=== PATIENT | male | born 1950 | race Caucasian/White ===

== ENCOUNTER → 2016-09-29 | Outpatient (CLI) | payer OTHER | LOC: BMCIMAGING 10:28 | PROVIDERS: ATTEND Family Medicine | DX: J44.9 Chronic obstructive pulmonary disease, unspecified (principal) ==

== ENCOUNTER → 2016-10-01 | Outpatient (CLI) | payer OTHER | LOC: BMCIMAGING 13:05 | PROVIDERS: ATTEND Internal Medicine | DX: R91.8 Other nonspecific abnormal finding of lung field (principal) ==

== ENCOUNTER → 2016-11-27 | Outpatient (CLI) | payer OTHER | LOC: BMCIMAGING 08:08 | PROVIDERS: ATTEND Internal Medicine | DX: Z13.83 Encounter for screening for respiratory disorder NEC (principal) ==

== ENCOUNTER → 2017-05-06 | Outpatient (CLI) | payer OTHER | LOC: BMCIMAGING 08:41 | PROVIDERS: ATTEND Family Medicine | DX: S52.122A Displaced fracture of head of left radius, initial encounter for closed fracture (principal) ==

== ENCOUNTER 2017-12-08 12:17 | Emergency (ER) | payer OTHER ==
--- NOTE | 2017-12-08 13:10 | EDPHY ---
H & P Stated Complaint: Tripped/fell; pain R wrist and LFA Time Seen by Provider: 12/08/17 12:42 HPI/ROS: CHIEF COMPLAINT: Mechanical fall, right wrist pain, left elbow pain HISTORY OF PRESENT ILLNESS: The patient presents to the ED with complaints of right wrist pain and left elbow pain after mechanical fall. The patient has a history of a right wrist fusion. The patient did not strike his head or lose consciousness. He has pain with movement in both the joints. He denies any associated numbness or weakness. He denies additional acute complaints. REVIEW OF SYSTEMS: A comprehensive 10 point review of systems is otherwise negative aside from elements mentioned in the history of present illness. Source: Patient Exam Limitations: No limitations - Personal History Current Tetanus Diphtheria and Acellular Pertussis (TDAP): Yes - Medical/Surgical History Hx Asthma: No Hx Chronic Respiratory Disease: No Hx Diabetes: No Hx Cardiac Disease: No Hx Renal Disease: No Hx Cirrhosis: No Hx Alcoholism: No Hx HIV/AIDS: No Hx Splenectomy or Spleen Trauma: No Other PMH: DENIES PMH. PSH:ORTHO; partial fusion with implant R wrist - Social History Smoking Status: Never smoked - Physical Exam Exam: General Appearance: Alert, no distress Head: Atraumatic Eyes: Pupils equal, round, reactive ENT, Mouth: No hemotympanum, no oral trauma Neck: Nontender, trachea midline Respiratory: Chest wall stable, no crepitus Cardiovascular: Regular rate and rhythm Abdomen: Abdomen is soft and nontender, pelvis stable Skin: No lacerations, No abrasion Back: No midline T/L/S pain Extremities: Tenderness to palpation right distal radius, tenderness to palpation left radial head Neurological: A&Ox3, normal motor function, normal sensory exam Constitutional: Initial Vital Signs Temperature (C) 36.7 C 12/08/17 12:25 Heart Rate 68 12/08/17 12:25 Respiratory Rate 16 12/08/17 12:25 Blood Pressure 150/100 H 12/08/17 12:25 O2 Sat (%) 97 12/08/17 12:25 O2 Delivery Mode Room Air Allergies/Adverse Reactions: No Known Allergies Allergy (Verified 12/08/17 12:30) Home Medications: Medication Instructions Recorded NK [No Known Home Meds] 12/08/17 Medical Decision Making - Diagnostics Imaging Results: Imaging Impressions Wrist X-Ray 12/08/17 12:42 Impression: Comminuted, mildly angulated fracture of the distal radial metaphysis with intraarticular extension. Mildly displaced ulnar styloid fracture. Other chronic findings, as above. Elbow X-Ray 12/08/17 13:05 Impression: Mildly displaced left radial head fracture and joint effusion. ED Course/Re-evaluation: The patient presents the ED for evaluation of right wrist pain and left elbow pain following mechanical fall. The patient is noted to have a distal radius fracture which is intra-articular and comminuted. The patient also has a left radial head fracture. I did review his x-rays with his primary orthopedic surgeon Mike Rico. The patient will be placed in a sugar-tong ortho glass splint for his right wrist fracture. He is placed in a sling for his left radial head fracture. The patient will be discharged home with instructions to follow up with Dr. Rico this week. The patient is advised to use ice and Tylenol as needed for pain management. He is provided oxycodone for more severe pain. Differential Diagnosis: Differential diagnosis considered includes fracture, sprain, dislocation Departure - Departure Disposition: Home, Routine, Self-Care Clinical Impression: Distal radius fracture, right Qualifiers: Encounter type: initial encounter Fracture type: closed Fracture morphology: other intra-articular Qualified Code(s): S52.571A - Other intraarticular fracture of lower end of right radius, initial encounter for closed fracture Radial head fracture, closed Qualifiers: Encounter type: initial encounter Fracture alignment: displaced Laterality: left Qualified Code(s): S52.122A - Displaced fracture of head of left radius, initial encounter for closed fracture Condition: Good Instructions: Wrist Fracture in Adults (ED), Elbow Fracture (ED) Additional Instructions: 1. Wear splint until seen in follow-up by Dr. Rico. Please contact his office tomorrow to schedule a follow-up visit. 2. Tylenol as needed for pain. Oxycodone as needed for severe pain. 3. Ice 20-30 minutes at a time 4 to 5 times a day for next several days. Referrals: Radha Potts MD [Primary Care Provider] - As per Instructions Mike Rico MD [Medical Doctor] - As per Instructions
[2017-12-08 14:32] VITALS: BP 106/80
== END 2017-12-08 14:32 | disposition home or self-care (01) ==
DX: S52.571A Other intraarticular fracture of lower end of right radius, initial encounter for closed fracture (principal); S52.122A Displaced fracture of head of left radius, initial encounter for closed fracture; W18.39XA Other fall on same level, initial encounter
CPT/HCPCS: 73080; 73110; 99284; A4565

== ENCOUNTER → 2017-12-23 | Outpatient (CLI) | payer OTHER | LOC: BMCIMAGING 12:49 | PROVIDERS: ATTEND Orthopaedic Surgery Hand Surgery | DX: S52.571D Other intraarticular fracture of lower end of right radius, subsequent encounter for closed fracture with routine healing (principal); S52.122D Displaced fracture of head of left radius, subsequent encounter for closed fracture with routine healing ==

== ENCOUNTER → 2018-01-06 | Outpatient (CLI) | payer OTHER | LOC: BMCIMAGING 11:00 | PROVIDERS: ATTEND Orthopaedic Surgery Hand Surgery | DX: S52.122D Displaced fracture of head of left radius, subsequent encounter for closed fracture with routine healing (principal); S52.531D Colles' fracture of right radius, subsequent encounter for closed fracture with routine healing ==

== ENCOUNTER → 2018-01-29 | Outpatient (CLI) | payer OTHER | LOC: BMCIMAGING 11:09 | PROVIDERS: ATTEND Orthopaedic Surgery Hand Surgery | DX: S52.591D Other fractures of lower end of right radius, subsequent encounter for closed fracture with routine healing (principal) ==

== ENCOUNTER → 2018-02-03 | Outpatient (CLI) | payer OTHER, MEDICARE | LOC: FIMAGING 14:31 | PROVIDERS: ATTEND Physician Assistant Medical | DX: R11.0 Nausea (principal); R42 Dizziness and giddiness; R53.83 Other fatigue; M41.84 Other forms of scoliosis, thoracic region | CPT/HCPCS: 82607-90 ==

== ENCOUNTER → 2018-04-09 | Outpatient (CLI) | payer OTHER, MEDICARE | LOC: FIMAGING 18:36 | PROVIDERS: ATTEND Physician Assistant Medical | DX: M41.84 Other forms of scoliosis, thoracic region (principal); M47.894 Other spondylosis, thoracic region; M48.04 Spinal stenosis, thoracic region; M51.24 Other intervertebral disc displacement, thoracic region ==

== ENCOUNTER → 2018-10-16 | Outpatient (CLI) | payer OTHER, MEDICARE | LOC: FIMAGING 19:36 | PROVIDERS: ATTEND Physical Medicine & Rehabilitation | DX: M51.34 Other intervertebral disc degeneration, thoracic region (principal); M48.04 Spinal stenosis, thoracic region; M41.84 Other forms of scoliosis, thoracic region ==

== ENCOUNTER → 2018-10-18 | Outpatient (CLI) | payer OTHER, MEDICARE | LOC: FIMAGING 18:29 | PROVIDERS: ATTEND Physical Medicine & Rehabilitation | DX: R93.89 Abnormal findings on diagnostic imaging of other specified body structures (principal); M51.34 Other intervertebral disc degeneration, thoracic region; M50.30 Other cervical disc degeneration, unspecified cervical region; M47.812 Spondylosis without myelopathy or radiculopathy, cervical region; M53.84 Other specified dorsopathies, thoracic region ==